=== PATIENT | male | born 1995 | race Caucasian/White ===

== ENCOUNTER 2022-05-20 13:42 | Emergency (ER) | payer MEDICAID ==
[~2022-05-20] VITALS: Ht 165.1 cm; Wt 64.0 kg
[2022-05-20 14:02] VITALS: BP 132/76
[2022-05-20] MEDS ORDERED: ACETAMINOPHEN 325MG TABLET PO ONE (14:30)
[2022-05-20] MEDS ORDERED: LIDOCAINE HCL 1% 20ML VIAL (Pyxis) INJ INFIL ONE (16:30)
[2022-05-20] MEDS ORDERED: LIDOCAINE HCL 1% 10 MG/ML 10ML VIAL INJ NR (17:30)
[2022-05-20] MEDS ORDERED: LIDOCAINE HCL 1% 20ML VIAL (Pyxis) INJ INFIL SCH (17:30)
== END 2022-05-20 20:00 | disposition left against medical advice (07) ==
LOC: ER 13:42
DX: S60.455A Superficial foreign body of left ring finger, initial encounter (principal); F17.210 Nicotine dependence, cigarettes, uncomplicated; W45.8XXA Other foreign body or object entering through skin, initial encounter; Y93.89 Activity, other specified; Y92.018 Other place in single-family (private) house as the place of occurrence of the external cause
CPT/HCPCS: 73130; 99283; J3490

== ENCOUNTER 2024-07-07 09:11 | Emergency (ER) | payer MEDICAID, OTHER ==
[~2024-07-07] VITALS: Ht 172.7 cm; Wt 65.0 kg
[~2024-07-07 09:11] MED LIST: ACET-2708 PO; CEPH500T PO; SULF1TAB48 PO
[2024-07-07 09:16] VITALS: O2SAT 98
[2024-07-07] MEDS ORDERED: AMOX-405 MT (10:27)
[2024-07-07 10:46] VITALS: BP 118/78; PULSE 88; RESP 18; TEMP 37.00296; O2SAT 98
== END 2024-07-07 10:48 ==
LOC: ER 09:11
DX: M79.645 Pain in left finger(s) (principal); Z65.3 Problems related to other legal circumstances
CPT/HCPCS: 99283